=== PATIENT | male | born 1980 | race Caucasian/White ===

== ENCOUNTER 2016-08-06 11:45 | Emergency (ER) | payer OTHER ==
[~2016-08-06] VITALS: Ht 170.2 cm; Wt 90.3 kg
[~2016-08-06 11:45] MED LIST: ALER-CAP25 M2; BACLOFEN10 MG; CELEXA20 MG; NEURONTIN400 M1; PEGASYS180 MCG/0.; RIBAVIRIN200 MG
[2016-08-06 12:43] LABS: HEMATOCRIT 46.2 % (38.0-50.0); MCH 32.5 PG (29.0-34.0); MCHC 35.1 G/DL (30.0-36.0); MCV 92.6 FL (86-99); MEAN PLAT.VOLUME 10.1 uM^3 (9.0-12.4); PLATELET COUNT 250 K/uL (156-360); RBC DIS.WIDTH-CV 11.5 % (11.8-14.6); RBC DIS.WIDTH-SD 38.6 % (39-53); RED BLOOD COUNT 4.99 M/uL (4.00-5.50); WHITE BLOOD COUNT 15.9 K/uL (4.1-10.2)
[2016-08-06 12:55] LABS: CHLORIDE 103 mEq/L (99-109); POTASSIUM 4.2 mEq/L (3.7-5.4); SODIUM 141 mEq/L (136-147)
[2016-08-06 12:57] LABS: GLUCOSE 97 mg/dL (70-99)
[2016-08-06 12:59] LABS: ANION GAP 10 MEQ/L (2-14); TOTAL BILIRUBIN 1.2 mg/dL (0.0-1.0)
[2016-08-06 13:01] LABS: ALKALINE PHOSPHATASE 45 IU/L (3-129); GFR ESTIMATE (CALCULATED) > 59 mL/min/
[2016-08-06 13:02] LABS: UREA NITROGEN (BUN) 12 mg/dL (9-23)
[2016-08-06 13:04] LABS: LIPASE 15 U/L (1.0-51.0)
[2016-08-06 14:02] VITALS: BP 111/80
== END 2016-08-06 14:03 ==
LOC: EME 11:45
PROVIDERS: Emergency Medicine
DX: S02.2XXA Fracture of nasal bones, initial encounter for closed fracture (principal); S60.222A Contusion of left hand, initial encounter; S09.90XA Unspecified injury of head, initial encounter; Y04.0XXA Assault by unarmed brawl or fight, initial encounter; Y92.143 Cell of prison as the place of occurrence of the external cause; F17.200 Nicotine dependence, unspecified, uncomplicated
CPT/HCPCS: 70450; 70486; 73130; 80053; 83690; 85027; 99281; 99284